=== PATIENT | female | born 1960 | race Caucasian/White ===

== ENCOUNTER 2024-05-14 17:28 | Day surgery (SDC) | payer OTHER ==
[2024-05-14] MEDS: LACTATED RINGERS 1,000 ML IV ONE (00:22)
[2024-05-14 17:54] LABS: BASOPHILS % (AUTO) 0.2 %; HCT - HEMATOCRIT 37.9 % (37.0-47.0); HGB - HEMOGLOBIN 12.2 g/dL (12.0-16.0); LYMPHOCYTES # (AUTO) 0.5 10^3/uL (1.5-3.5); LYMPHOCYTES % (AUTO) 5.1 %; MEAN CORPUSCULAR HEMOGLOBIN 27.7 pg (27.0-31.0); MEAN CORPUSCULAR HGB CONC 32.2 g/dL (32.0-36.0); MEAN CORPUSCULAR VOLUME 85.9 fL (81.0-99.0); MEAN PLATELET VOLUME 9.9 fL (7.9-10.8); MONOCYTES # (AUTO) 0.7 10^3/uL (0.0-1.0); MONOCYTES % (AUTO) 6.7 %; NEUTROPHILS # (AUTO) 8.9 10^3/uL (1.5-6.6); NEUTROPHILS % (AUTO) 87.8 %; PLT - PLATELET COUNT 175 10^3/uL (130-450); RED BLOOD COUNT 4.41 10^6/uL (4.20-5.40); RED CELL DISTRIBUTION WIDTH 14.1 % (12.0-15.0); WHITE BLOOD COUNT 10.1 x10^3/uL (4.8-10.8)
[2024-05-14 18:12] LABS: ALBUMIN 4.1 g/dL (3.2-5.5); ALBUMIN/GLOBULIN RATIO 1.5 (1.0-2.2); BILIRUBIN,TOTAL 0.6 mg/dL (0.2-1.0); CALCIUM 10.3 mg/dL (8.5-10.3); CREATININE 0.9 mg/dL (0.6-1.3); POTASSIUM 4.2 mmol/L (3.5-4.5); TOTAL PROTEIN 6.8 g/dL (6.4-8.9)
[2024-05-14 18:51] LABS: BILIRUBIN,URINE NEGATIVE (NEGATIVE); GLUCOSE, URINE (UA) NEGATIVE (NEGATIVE); KETONES,URINE (UA) 15 mg/dL (NEGATIVE); LEUKOCYTE ESTERASE, URINE NEGATIVE (NEGATIVE); NITRITE,URINE NEGATIVE (NEGATIVE); OCCULT BLOOD,URINE NEGATIVE (NEGATIVE); PROTEIN,URINE NEGATIVE (NEGATIVE); UROBILINOGEN,URINE 0.2 (NORMAL) E.U./dL (NORMAL)
[2024-05-14 18:52] LABS: CLARITY,URINE CLEAR (CLEAR)
[2024-05-14] MEDS: SODIUM CHLORIDE 0.9% 1,000 ML IV STA (19:32)
--- NOTE | 2024-05-14 19:35 | ED Physician Documentation ---
History of Present Illness - Stated complaint Stated Complaint: ABD PX - Chief complaint Chief Complaint: Abd Pain - History obtained from History obtained from: Patient - History of Present Illness Timing: Prior to arrival, How many days ago (1) - Additonal information Additional information: Patient is a 63-year-old female presenting to the emergency department with abdominal pain. She notes pain started in her epigastric region and radiated to her lower abdomen. She does her symptoms started last night was intermittent after she ate a shrimp salad. She notes no nausea vomiting or diarrhea associated with her symptoms. She notes intermittent chills and feels slightly feverish but has not had a temperature. She has no history of abdominal surgeries. No history of irritable bowel disease. She is currently camping and went on a hike today but her pain significantly worsened after walking. She is unable to eat anything today due to her stomach upset. She denies any recent antibiotic use. She denies any recent travel. She denies any abdominal pain prior to this. PD PAST MEDICAL HISTORY - Past Medical History Past Medical History: No - Past Surgical History Past Surgical History: No - Allergies Allergies/Adverse Reactions: Allergies Allergy/AdvReac Type Severity Reaction Status Date / Time Morpholine Analogues AdvReac Nausea Verified 05/14/24 17:34 - Social History Does the pt smoke?: No Smoking Status: Never smoker Does the pt drink ETOH?: No Does the pt have substance abuse?: No - Immunizations Immunizations are current?: Yes PD ED PE NORMAL - Vitals Vital signs reviewed: Yes - General General: Alert and oriented X 3 - HEENT HEENT: Atraumatic - Neck Neck: Supple, no meningeal sign - Cardiac Cardiac: RRR, No murmur, No gallop, No rub - Respiratory Respiratory: No respiratory distress - Abdomen Abdomen: Normal bowel sounds, Soft - Female Female : Deferred (Abdominal tenderness on palpation of epigastric and lower abdominen. Patient has no significant rebound but has generalized guarding on exam. No CVA tenderness. Active bowel sounds on auscultation.) - Back Back: No CVA TTP - Derm Derm: Normal color - Extremities Extremities: No deformity - Neuro Neuro: Alert and oriented X 3 Motor: Obeys Commands Results - Vitals Vitals: Vital Signs - 24 hr 05/14/24 05/14/24 17:34 21:41 Temperature 36.2 C L Heart Rate 74 77 Respiratory 16 16 Rate Blood Pressure 105/65 126/69 O2 Saturation 100 96 Oxygen O2 Source Room air - Labs Labs: Laboratory Tests 05/14/24 05/14/24 05/14/24 17:50 17:50 18:35 WBC 10.1 RBC 4.41 Hgb 12.2 Hct 37.9 MCV 85.9 MCH 27.7 MCHC 32.2 RDW 14.1 Plt Count 175 MPV 9.9 Neut # (Auto) 8.9 H Lymph # (Auto) 0.5 L [place] # (Auto) 0.7 Eos # (Auto) 0.0 Baso # (Auto) 0.0 Absolute Nucleated RBC 0.00 Nucleated RBC % 0.0 Sodium 135 Potassium 4.2 Chloride 100 L Carbon Dioxide 29 Anion Gap 6.0 BUN 24 H Creatinine 0.9 Estimated GFR (MDRD) 64 L Glucose 133 H Calcium 10.3 Total Bilirubin 0.6 AST 15 ALT 10 Alkaline Phosphatase 61 Total Protein 6.8 Albumin 4.1 Globulin 2.7 Albumin/Globulin Ratio 1.5 Lipase 21 Urine Color YELLOW Urine Clarity CLEAR Urine pH 6.0 Ur Specific [place] 1.025 Urine Protein NEGATIVE Urine Glucose (UA) NEGATIVE Urine Ketones 15 H Urine Occult Blood NEGATIVE Urine Nitrite NEGATIVE Urine Bilirubin NEGATIVE Urine Urobilinogen 0.2 (NORMAL) Ur Leukocyte Esterase NEGATIVE Ur Microscopic Review NOT INDICATED Urine Culture Comments NOT INDICATED PD Medical Decision Making - ED course ED course: Patient is a 63-year-old female presenting with abdominal pain that started in the epigastric region radiating to the lower abdomen. Patient denies any nausea or vomiting with her symptoms she denies any fevers. Has been having some intermittent chills. She has pain initially started as intermittent but now has progressively worsened to severe lower abdominal pain no specific bloating no palpable mass. Vitals are stable on arrival. Active bowel sounds on auscultation with guarding on palpation of upper and lower abdomen. Negative Enamorado sign no Rovsing sign noted. Labs obtained here in the emergency department Shows slight white count of 10 but no significant electrolyte abnormalities no signs of anemia urine shows no significant UTI. Lipase is within normal range as well. Patient given a dose of Toradol and 1 L of fluids here in the emergency department. She feels significantly better after these were given pending CT scan at this time. CT abdomen obtained here in the emergency department does show findings consistent with appendicitis. 2131: Discussed with Dr. Baumann he will come evaluate patient in the emergency department. Dr. Sánchez came and evaluated patient here in the emergency department. Patient given IV Zosyn here in the emergency department will be transferred to surgery. Departure - Departure Clinical Impression: Appendicitis
[2024-05-14] MEDS: KETOROLAC 30 MG/ML VIAL IVP STA (19:37)
[2024-05-14] MEDS ORDERED: iohexoL-300 100 ML VIAL ONE (19:43)
[2024-05-14] MEDS: iohexoL-300 100 ML VIAL IVP ONE (20:15)
--- NOTE | 2024-05-14 21:23 | CT Report ---
PROCEDURE: Abdomen/Pelvis W INDICATIONS: concern for diverticulitis vs. gastroenteritis CONTRAST: Nonionic iodinated intravenous contrast, no oral contrast. 100 ML OMNI 300 TECHNIQUE: After the administration of intravenous contrast, a CT scan of the abdomen and pelvis was performed. Images were recorded and evaluated at appropriate window settings. Reformats: coronal and sagittal. F or radiation dose reduction, the following was used: automated exposure control, adjustment of mA and /or kV according to patient size. COMPARISON: None. FINDINGS: Image quality: Diagnostic. Lower chest: Unremarkable. Liver: No solid mass. Gallbladder: Biliary tree: No intrahepatic or extrahepatic dilation, accounting for age. Spleen: No splenomegaly. Pancreas: No pancreatic ductal dilation. Adrenals: No adrenal nodule. Kidneys and ureters: No hydronephrosis. No renal cystic lesion which requires follow up. No solid mas s. Stomach, bowel and peritoneum: No gastric or small bowel dilation. No abnormal wall thickening. No pa thologic free fluid. Lymph nodes: No central or retroperitoneal adenopathy. Vessels: No infrarenal aortic aneurysm. Patent portal vein. PELVIS Reproductive organs: Unremarkable. Bladder: No abnormal wall thickening, accounting for underdistention. Pelvic lymph nodes: No pelvic adenopathy by size criteria. Bones: No aggressive osseous abnormality. Other: No significant ventral or inguinal hernia. There is an inflammatory process at the right lower quadrant extending from the inferior cecum towards the midline, with a small partially calcified str ucture centrally positioned in this area, with the findings strongly suggestive of acute appendicitis with small appendicolith within. IMPRESSION: Presumed acute appendicitis with small appendicolith within the inflamed appendix at the right lower quadrant. Findings immediately called to the emergency room physician caring for the patient. Reviewed by: Km Cat MD on 05/14/2024 9:21 PM PDT Approved by: Km Cat MD on 05/14/2024 9:21 PM PDT Station ID: [id number]
[2024-05-14] MEDS: PIPERACILLIN/TAZOBACTAM 3.375 GM in SODIUM CHLORIDE 0.9% MINIBAG 100 ML IV STA (21:47)
--- NOTE | 2024-05-14 22:13 | HISTORY & PHYSICAL EXAMINATION ---
PMH/PSH - Past Medical History MRSA Hx?: No Social & Family Hx - Social History Does the pt smoke?: No Smoking Status: Never smoker Does the pt drink ETOH?: No Does the pt have substance abuse?: No Meds/Allgy - Allergies Allergies/Adverse Reactions: Allergies Allergy/AdvReac Type Severity Reaction Status Date / Time Morpholine Analogues AdvReac Nausea Verified 05/14/24 17:34 Exam - Vital Signs Vital Signs: Vital Signs x48h Temp Pulse Resp BP Pulse Ox 05/14/24 21:41 77 16 126/69 96 05/14/24 17:34 97.2 F L 74 16 105/65 100 Results - Lab Results Fish Bones: 05/14/24 17:50 05/14/24 17:50 Other Lab Results: Lab Results x24hrs 05/14/24 05/14/24 05/14/24 Range/Units 18:35 17:50 17:50 WBC 10.1 (4.8-10.8) x10^3/uL RBC 4.41 (4.20-5.40) 10^6/uL Hgb 12.2 (12.0-16.0) g/dL Hct 37.9 (37.0-47.0) % MCV 85.9 (81.0-99.0) fL MCH 27.7 (27.0-31.0) pg MCHC 32.2 (32.0-36.0) g/dL RDW 14.1 (12.0-15.0) % Plt Count 175 (130-450) 10^3/uL MPV 9.9 (7.9-10.8) fL Neut # (Auto) 8.9 H (1.5-6.6) 10^3/uL Lymph # (Auto) 0.5 L (1.5-3.5) 10^3/uL [place] # (Auto) 0.7 (0.0-1.0) 10^3/uL Eos # (Auto) 0.0 (0.0-0.7) 10^3/uL Baso # (Auto) 0.0 (0.0-0.1) 10^3/uL Absolute Nucleated RBC 0.00 x10^3/uL Nucleated RBC % 0.0 /100WBC Sodium 135 (135-145) mmol/L Potassium 4.2 (3.5-4.5) mmol/L Chloride 100 L (101-111) mmol/L Carbon Dioxide 29 (21-32) mmol/L Anion Gap 6.0 (6-13) BUN 24 H (6-20) mg/dL Creatinine 0.9 (0.6-1.3) mg/dL Estimated GFR (MDRD) 64 L (>89) Glucose 133 H (74-104) mg/dL Calcium 10.3 (8.5-10.3) mg/dL Total Bilirubin 0.6 (0.2-1.0) mg/dL AST 15 (10-42) IU/L ALT 10 (10-60) IU/L Alkaline Phosphatase 61 (42-121) IU/L Total Protein 6.8 (6.4-8.9) g/dL Albumin 4.1 (3.2-5.5) g/dL Globulin 2.7 (2.1-4.2) g/dL Albumin/Globulin Ratio 1.5 (1.0-2.2) Lipase 21 (11-82) U/L Urine Color YELLOW Urine Clarity CLEAR (CLEAR) Urine pH 6.0 (5.0-7.5) PH Ur Specific [place] 1.025 (1.002-1.030) Urine Protein NEGATIVE (NEGATIVE) mg/dL Urine Glucose (UA) NEGATIVE (NEGATIVE) mg/dL Urine Ketones 15 H (NEGATIVE) mg/dL Urine Occult Blood NEGATIVE (NEGATIVE) Urine Nitrite NEGATIVE (NEGATIVE) Urine Bilirubin NEGATIVE (NEGATIVE) Urine Urobilinogen 0.2 (NORMAL) (NORMAL) E.U./dL Ur Leukocyte Esterase NEGATIVE (NEGATIVE) Ur Microscopic Review NOT INDICATED Urine Culture Comments NOT INDICATED Impression/Plan - Problem List Problem List: General Surgery Pre-op Admitting History and Physical ASSESSMENT: 1) Acute appendicitis PLAN: 1) Laparoscopic appendectomy, possible open appendectomy under GETA <><><><><> CONSENT: Shayna has been counseled for the procedure, it's indications, risks, benefits and expected outcome as well as alternative therapies. We specifically discussed risks associated with anesthesia, bleeding, infection, injury to surrounding structures which may require additional surgery, and the possible need for conversion to an open procedure. We also discussed the possible need for a blood transfusion with its risks and benefits. Shayna understands, agrees, and consents to the proposed operative strategy and requests that we proceed with the procedure as outlined in our discussion. <><><><><> Chief Complaint Abdominal pain HPI Shayna is a 63 year old female who is from [place] and [place] with her about 30 miles away. Last evening after dinner she developed indigestion associated with nausea. It persisted all night and resulted in intermittent cramping in the mid-lower abdomen. She has not been hungry despite taking a long hike today. As the symptoms seemed to be worsening she came to the ED and was found to have CT image evidence of acute appendicitis. She claims to have experienced fevers and chills earlier today. She denies prior episodes of discomfort. The Past Family, Social and Personal History has been reviewed with the patient. PMH Increased lipids; ? 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 PSH Right wrist surgery FH Negative for significant illness ALLERGIES Morphine gives her a stomach ache SH Denies smoking or ETOH use Anticoagulant use: No ROS Pertinent positives See HPI All other reviewed systems negative Medications Statin Physical Examination: Vital Signs: 76; 126/77; RR 12 BMI: 25 GENERAL APPEARANCE: Normal development, normal body habitus, normal grooming PSYCHIATRIC: AAO; Comfortable and []calm demeanor EYES: Pupils equal, round and reactive to light, sclera anicteric, EARS, NOSE, MOUTH, THROAT: Normal hearing, Oral mucous membranes moist and without lesions; Teeth in good repair NECK: No crepitus, lymphadenopathy, or thyromegaly LUNGS: Clear to auscultation without wheezing; No use of accessory muscles to breathe CARDIOVASCULAR: Heart-NSR without murmurs; Palpable carotid arteries - no bruits; Peripheral edema absent ABD: Soft; Not distended; No ventral hernias; No palpable masses; RLQ tenderness with deep palpation - no peritoneal signs or muscle guarding; Active BS LYMPHATIC: Neck, Axillae, Groin without palpable adenopathy EXTREMITIES: No clubbing, cyanosis, infections SKIN: Anicteric; No rashes, lesions, Ulcerations LABS CBC, BMP WNL IMAGING CT Abd/Pelvis - Dilated appendix in RLQ and midline with fecalith All images were personally reviewed by me for this encounter. Rafael Baumann MD, FACS General Surgery Service [phone]
[2024-05-14] MEDS ORDERED: ROCURONIUM 50 MG/5 ML VIAL ONE ×2 (22:29→23:48)
[2024-05-14] MEDS ORDERED: PROPOFOL 200 MG/20 ML VIAL IVP ONE (22:29)
[2024-05-14] MEDS ORDERED: fentaNYL 100 MCG/2 ML VIAL ONE (22:29)
[2024-05-14] MEDS: LACTATED RINGERS 1,000 ML IV SCH (22:31)
[2024-05-14] MEDS ORDERED: LIDOCAINE-PF 2% 10 ML AMP SUBQ ONE (22:33)
[2024-05-14] MEDS ORDERED: LIDOCAINE 1%-EPI 1:100000 20 ML MDV ONE (22:48)
[2024-05-14] MEDS ORDERED: BUPIVACAINE 0.25% PF 10 ML VIAL ONE (22:48)
--- NOTE | 2024-05-14 22:50 | ANESTHESIA ---
Pre-Anesthesia VS, & Labs - Diagnosis appendicitis - Procedure lap appy Vital Signs: Temp Pulse Resp BP Pulse Ox O2 Flow Rate 36.2 C L 77 16 126/69 96 05/14/24 17:34 05/14/24 21:41 05/14/24 21:41 05/14/24 21:41 05/14/24 21:41 Height: 5 ft 6 in Weight (kg): 69.4 kg Body Mass Index: 24.7 BMI Classification: Normal - NPO >8 hours - Is Patient ?: No - Lab Results Current Lab Results: Laboratory Tests 05/14/24 17:50: Sodium 135, Potassium 4.2, Chloride 100 L, Carbon Dioxide 29, Anion Gap 6.0, BUN 24 H, Creatinine 0.9, Estimated GFR (MDRD) 64 L, Glucose 133 H, Calcium 10.3, Total Bilirubin 0.6, AST 15, ALT 10, Alkaline Phosphatase 61, Total Protein 6.8, Albumin 4.1, Globulin 2.7, Albumin/Globulin Ratio 1.5, Lipase 21 05/14/24 17:50: WBC 10.1, RBC 4.41, Hgb 12.2, Hct 37.9, MCV 85.9, MCH 27.7, MCHC 32.2, RDW 14.1, Plt Count 175, MPV 9.9, Neut # (Auto) 8.9 H, Lymph # (Auto) 0.5 L, [place] # (Auto) 0.7, Eos # (Auto) 0.0, Baso # (Auto) 0.0, Absolute Nucleated RBC 0.00, Nucleated RBC % 0.0 Fish Bones: 05/14/24 17:50 05/14/24 17:50 Home Medications and Allergies Active Medications Lactated Ringer's (Lr) 1,000 mls @ 100 mls/hr IV .Q10H ZAID Last Admin: 05/14/24 22:31 Dose: 100 mls/hr Allergies/Adverse Reactions: Allergies Allergy/AdvReac Type Severity Reaction Status Date / Time Morpholine Analogues AdvReac Nausea Verified 05/14/24 17:34 Anes History & Medical History - Anesthetic History Anesthesia Complications: reports: No previous complications - Medical History Cardiovascular: reports: High cholesterol Pulmonary: reports: None Smoking Status: Never smoker Exam Dental: WNL Mouth Opening: Greater than 4 Fingerbreadths Neck Mobility: Normal Mallampati classification: II Thyromental Distance: greater than 6 cm Respiratory: Lungs clear Cardiovascular: Regular rate, Normal S1, Normal S2 Plan Anesthesia Type: General Consent for Procedure(s) Verified and Reviewed: Yes Code Status: Attempt Resuscitation ASA classification: 2-Mild systemic disease Is this case an emergency?: Yes
[2024-05-14] MEDS ORDERED: fentaNYL 100 MCG/2 ML VIAL IVP PRN (22:51)
[2024-05-14] MEDS ORDERED: ONDANSETRON 4 MG/2 ML VIAL IVP PRN (22:51)
[2024-05-14] MEDS ORDERED: NALOXONE 0.4 MG/ML VIAL IVP PRN (22:51)
[2024-05-14] MEDS ORDERED: ATROPINE ABBOJECT 1 MG/10 ML SYRINGE IVP PRN (22:51)
[2024-05-14] MEDS ORDERED: ePHEDrine 50 MG/ML VIAL IVP PRN (22:51)
[2024-05-14] MEDS ORDERED: METOCLOPRAMIDE 10 MG/2 ML VIAL IVP PRN (22:51)
[2024-05-14] MEDS ORDERED: HYDROmorphone 0.5 MG/0.5 ML SYRINGE IVP PRN (22:51)
[2024-05-14] MEDS ORDERED: LACTATED RINGERS 1,000 ML IV SCH (23:00)
[2024-05-14] MEDS ORDERED: ONDANSETRON 4 MG/2 ML VIAL ONE (23:30)
[2024-05-14] MEDS ORDERED: DEXAMETHASONE 4 MG/ML VIAL ONE (23:30)
[2024-05-14] MEDS: LIDOCAINE 1%-EPI 1:100000 20 ML MDV SUBQ ONE ×2 (23:45)
[2024-05-14] MEDS: BUPIVACAINE 0.25% PF 10 ML VIAL SUBQ ONE ×2 (23:46)
[2024-05-14] MEDS ORDERED: SUGAMMADEX 200 MG/2 ML VIAL IVP ONE (23:50)
[2024-05-15] MEDS ORDERED: ACETAMINOPHEN 1,000 MG/100 ML 1,000 MG/100 ML BAG IV ONE (00:02)
[2024-05-15] MEDS ORDERED: HYDROmorphone 0.5 MG/0.5 ML SYRINGE IVP PRN (00:17)
[2024-05-15] MEDS ORDERED: oxyCODONE 5 MG TABLET PO PRN (00:17)
--- NOTE | 2024-05-15 00:17 | OPERATIVE REPORT ---
Operative Report - Other Other Information/Narrative: PROCEDURE DATE: 05/15/2024 PREOPERATIVE DIAGNOSIS: Shayna is a 63 year old female who has clinical, CT, and laboratory findings consistent with acute appendicitis. Shayna is being taken to the operating room for laparoscopic appendectomy, possible open appende ctomy. POSTOPERATIVE DIAGNOSIS: Acute appendicitis NAME OF PROCEDURE: Laparoscopic appendectomy SURGEON: Rafael Baumann MD, FACS SUMMER CHILD CAREGIVER: Parakeet Raiser ANESTHESIA: General endotracheal. ESTIMATED BLOOD LOSS: 5 mL. DRAINS: None SPECIMEN: Appendix COMPLICATIONS None FINDINGS: The base of the appendix was normal. The distal 2/3rds was dilated and inflamed. There was purulence in the RLQ but no evidence of perforation DESCRIPTION OF OPERATION: After consent for the procedure was obtained, the patient was brought to the operating room where in the supine position, general endotracheal anesthesia was administered. A surgical time-out was performed, indicating the patient and the procedure to be performed. The abdomen was prepped with alcohol-free chloroprep and draped in a sterile fashion. The subcutaneous tissue of each of the planned port sites was infiltrated with 1% Lidocaine with epinephrine in a 50/50 mix with 1/4 % Marcaine mixture. Pneumoperitoneum was achieved through a subumbilical incision using a Nara cannula and an open technique. Under direct vision, a 5 mm muscle splitting, non-cutting port was placed in the right lower quadrant and an 12 mm muscle splitting, non-cutting port was placed in the left lower quadrant. Inspection revealed the above noted findings. Placing the patient in Trendelenburg position slightly rolled to the left allowed visualization of the appendix. The appendix was gently grasped with a ratcheted grasper and retracted superiorly and anteriorly. I then transected the mesoappendix with a harmonic scalpel and identified healthy tissue at the base of the appendix. The base of the appendix was stapled and transected flush with the cecum using an Endo-FLY stapling device using gastrointestinal farhan. The appendix was then brought out through the left lower quadrant port site incision using an EndoCatch device. Reinspection of the right lower quadrant revealed no evidence of bleeding or leakage from the previous dissection site. The right lower quadrant and pelvis were irrigated with warm sterile saline. The irrigant was aspirated. A search was made for sponges, packs, instruments, and needles. None were found. The sponge, pack, instrument, and needle counts were relayed to me as being correct. The left lower quadrant port site was closed with a 2-0 Vicryl under direct vision using an endo-close device. The pneumoperitoneum then was released. There was no evidence of bleeding from the laparoscopic port sleeve sites upon release of the pneumoperitoneum. The subumbilical incision was closed with 2-0 Vicryl for the linea alba. The skin of each of the port sites was closed with interrupted 4-0 Vicryl in a subcuticular fashion with Steri-Strips to reinforce the epidermis. Dressings were placed. The patient tolerated the procedure well and was brought to the recovery room with stable vital signs.
--- NOTE | 2024-05-15 00:34 | ANESTHESIA POST OP EVALUATION ---
Anesthesia Post Eval - Post Anesthesia Eval Vitals: Last Vital Signs Temp 37 C 05/15/24 00:17 Pulse 80 05/15/24 00:17 Resp 20 05/15/24 00:17 BP 154/83 H 05/15/24 00:17 Pulse Ox 99 05/15/24 00:17 O2 Flow Rate CV Function Including HR & BP: Stable Pain Control: Satisfactory Nausea & Vomiting: Negative Mental Status: Baseline Respiratory Status: Airway Patent Hydration Status: Satisfactory Anesthesia Complications: None
[2024-05-15] MEDS ORDERED: LACTATED RINGERS 1,000 ML IV SCH (01:00)
[2024-05-15] MEDS: PIPERACILLIN/TAZOBACTAM 3.375 GM in SODIUM CHLORIDE 0.9% MINIBAG 100 ML IV SCH ×2 (01:48→08:04)
[2024-05-15] MEDS: KETOROLAC 30 MG/ML VIAL IVP SCH (06:19)
[2024-05-15 07:48] VITALS: BP 102/57
--- NOTE | 2024-05-15 08:21 | PROVIDER PROGRESS NOTE ---
Progress Note General Surgery Post-op Note Dx: Acute appendicitis POD # 1 Laparoscopic appendectomy S: Comfortable; Pre-op pain gone. Post site pain well controlled with non- narcotic analgesia. Ambulatory; No nausea or vomiting O: VSS, afeb; Lungs clear; Heart NSR; Abd soft, non-tender; no distension, + BS; Port sites clean and dry A: Appendicitis - S/P uncomplicated laparoscopic appendectomy. Ready for discharge P: Discharge to home; Diet and activity as tolerated; Tylenol/Ibuprofen/Ice pain as needed for port site pain; May shower later today or tomorrow; On return to [place] by car, stop and ambulate several times; FU PCP in 7-10 days Jorge Baumann MD, FACS General Surgery Service
--- NOTE | 2024-05-15 08:25 | Discharge Plan ---
Discharge Plan Problem Reviewed?: Yes Disposition: Home, Self Care Condition: Good Prescriptions: Ibuprofen [Motrin] 400 mg PO Q6H PRN #60 tablet PRN Reason: Abdominal Pain Acetaminophen [Tylenol] 650 mg PO Q6H PRN #30 tablet PRN Reason: PRN PAIN &/OR FEVER Diet: Regular Activity Restrictions: Activity as Tolerated Shower Restrictions: No (Remove brown band aid when in shower) Driving Restrictions: No Instruction Topics: Appendectomy Laparoscopic Dc Plan of Treatment: Diet: as usual Activity: As tolerated; Gradually increase over the next few days but remember, if it hurts to do, don't do it. Medication: Tylenol 650 mg orally 4 x a day as needed Ibuprofen 400 mg orally 3-4 x a day with meals as needed Follow-up PCP in 7-10 days Call our office if you have questions: [phone] Jorge Baumann MD, FACS General Surgery Service [facility] No Smoking: If you smoke, Please STOP! Call for help.
--- NOTE | 2024-05-15 08:31 | DISCHARGE SUMMARY ---
"Discharge Summary Admit Date: 05/14/24 Discharge Date: 05/15/24 Discharging Provider: Pastor Code Status: Attempt Resuscitation Condition at Discharge: Good Discharge Disposition: 01 Home, Self Care - DIAGNOSES Admission Diagnoses: Acute appendicitis Discharge Diagnoses with Status of Each Condition: Acute appendicitis - resolved - HPI History of Present Illness: 63 year old female admitted with 12 hours of abdominal pain and clinical and image evidence for appendicitis - CONSULTS | PROCEDURES Procedures: 05/14/24 - Laparoscopic appendectomy - HOSPITAL COURSE Hospital Course: Uncomplicated. At the time of discharge, she was ambulatory, her pre-op discomfort was resolved, she was tolerating a diet, and her port-site pain was under control with oral non-narcotic medication. - ALLERGIES Allergies/Adverse Reactions: Allergies Allergy/AdvReac Type Severity Reaction Status Date / Time Morpholine Analogues AdvReac Nausea Verified 05/14/24 17:34 - MEDICATIONS Home Medications: Ambulatory Orders Medication Instructions Recorded Confirmed Acetaminophen [Tylenol] 650 mg PO Q6H PRN #30 tablet 05/15/24 Ibuprofen [Motrin] 400 mg PO Q6H PRN #60 tablet 05/15/24 Rosuvastatin Calcium 10 mg PO DAILY 05/15/24 05/15/24 Terbinafine [Lamisil] 250 mg PO DAILY 05/15/24 - PHYSICAL EXAM AT DISCHARGE General Appearance: positive: No acute distress, Alert Eyes Bilateral: positive: Normal inspection ENT: positive: Pharynx nml Neck: positive: Nml inspection Respiratory: positive: Chest non-tender, No respiratory distress, Breath sounds nml Cardiovascular: positive: Regular rate & rhythm, No murmur Abdomen: positive: Non-tender, Other (Port sites clean and dry) Skin: positive: Color nml, No rash Extremities: positive: Non-tender, Full ROM, Nml appearance Neurologic/Psychiatric: positive: Oriented x3 - LABS Result Diagrams: 05/14/24 17:50 05/14/24 17:50 - DIAGNOSTIC IMAGING Diagnostic Imaging Results: See rad report, Read independently - QUALITY (Female Hip Fx Only) Was patient sent home on osteoporosis medication?: No - TIME SPENT Time Spent in Discharge (Minutes): 30"
--- NOTE | 2024-05-15 10:46 | PHARMACY PROGRESS NOTE ---
- Best Possible Medication History Admit Date and Time: Processed by: Pharmacy Medication History completed: Yes Patient Interview: Completed Secondary Source(s): Pharmacy records, Insurance records As the person ultimately responsible for medication therapy, providers are able to order a medication from an existing home medication list in [facility] via the "Reconcile Routine" prior to Confirmation of that medication by lan support specialist. Such practice is discouraged except when the physician, in their clinical judgment, deems that a medical need exists for a medication without regard to previous use.
[2024-05-15 11:20] VITALS: O2SAT 98
== END 2024-05-15 12:03 | disposition home or self-care (01) ==
LOC: ED 17:28 → SDS 22:00 → MS3 05-15 00:47 → SDS 05-15 00:47
PROVIDERS: ATTEND Surgery
PROC: 0DTJ4ZZ Resection of Appendix, Percutaneous Endoscopic Approach (ICD-10-PCS; principal; 2024-05-14 23:00)
DX: K35.80 Unspecified acute appendicitis (principal)
CPT/HCPCS: 36415; 44970; 74177; 80053; 81003; 83690; 85025; 96365; 96372; 96375; 99285; J0131; J7120; Q9967; 81001; 87086